=== PATIENT | male | born 1995 | race Caucasian/White ===

== ENCOUNTER 2017-07-07 11:10 | Emergency (ER) | payer MEDICAID, SELFPAY ==
--- NOTE | 2017-07-07 12:21 | PC.NURSE ---
Flu and Strep swab sent to lab at 1217
--- NOTE | 2017-07-07 12:26 | [facility].EDFEV ---
ED Disposition Clinical Impression: Bronchitis Disposition: Home, Self-Care Condition on Discharge: Good Instructions: DI for Acute Bronchitis Prescriptions: Benzonatate [Benzonatate 200mg Cap] 200 mg PO TID #20 cap Doxycycline Monohydrate 100 mg PO BID #14 cap - Critical Care Critical Care Time: No Attestation: On 07/07/17, the high probability of a clinically significant, sudden or life threatening deterioration of the following system(s) required my full and direct attention, intervention and personal management. The time I documented below is in addition to time spent performing reported procedures but includes the following listed in this critical care notation. Medical Decision Making Vital Signs: 07/07/17 12:28 Temperature 98.5 F Temperature Source Oral Pulse Rate [Left Brachial] 94 H Respiratory Rate 14 Blood Pressure [Left Arm] 144/87 Blood Pressure Mean [Left Arm] 106 Blood Pressure Source [Left Arm] Automatic Cuff Blood Pressure Position [Left Arm] Sitting 02 Sat by Pulse Oximetry 98 Oxygen Delivery Method Room Air - Lab Data Lab results reviewed: Yes: I reviewed the patient's lab results. negative flu - Bill Inquiry Pt receiving controlled substance: No Bill was queried for this patient: No Fever HPI - General Stated Complaint: Cough Mode of Arrival: Ambulatory Source of Information: Patient Limitations: No Limitations - History of Present Illness Onset (ago): day(s) (4) Temperature Source: subjective Associated symptoms: chills, myalgias, nasal congestion Relieving factors: nothing Exacerbating factors: nothing Treatments prior to arrival fever: none - Related Data Previous Rx's Medication Instructions Recorded Benzonatate [Benzonatate 200mg Cap] 200 mg PO TID #20 cap 07/07/17 Doxycycline Monohydrate 100 mg PO BID #14 cap 07/07/17 Allergies Allergy/AdvReac Type Severity Reaction Status Date / Time No Known Allergies Allergy Unverified 06/24/17 15:32 ROS Obtained: Yes All systems reviewed & no additional complaints except - Respiratory Reports chest congestion, Reports cough Physical Exam - General General appearance: alert, in no apparent distress - Head Head exam: atraumatic, normocephalic, normal inspection - Eye Eye exam: Present: normal appearance, PERRL, EOMI - ENT ENT exam: Present: normal exam, normal oropharynx, mucous membranes moist, TM's normal bilaterally, normal external ear exam - Neck Neck exam: Present: normal inspection, full ROM, trachea midline - Chest Chest inspection: Present: normal inspection, symmetric chest wall rise. Absent: tenderness - Respiratory Respiratory exam: Present: normal lung sounds bilaterally. Absent: respiratory distress - Cardiovascular Cardiovascular exam: Present: regular rate, normal rhythm. Absent: JVD - Abdominal Exam Abdominal exam: Present: soft, normal bowel sounds. Absent: distention, tenderness, guarding - Extremities Exam Extremities exam: Present: normal inspection, full ROM, normal capillary refill. Absent: calf tenderness - Back Exam Back exam: Present: normal inspection. Absent: tenderness - Neurological Exam Neurological exam: Present: alert, oriented X3 - Psychiatric Psychiatric exam: Present: normal affect, normal mood - Skin Skin exam: Present: warm, dry, intact, normal color
[2017-07-07 12:28] VITALS: BP 144/87; PULSE 94; RESP 14; TEMP 36.9; O2SAT 98; BMI 19.5
== END 2017-07-07 13:38 | disposition home or self-care (01) ==
PROVIDERS: Emergency Provider Family Medicine
DX: J20.9 Acute bronchitis, unspecified (principal)
CPT/HCPCS: 87275; 87276; 99282